=== PATIENT | male | born 1960 | race Caucasian/White ===

== ENCOUNTER 2021-06-10 14:04 | Observation (INO) | payer MEDICARE, OTHER ==
[2021-06-10] MEDS ORDERED: SODIUM CHLORIDE 0.9% 1,000 ML IV STA (15:17)
--- NOTE | 2021-06-10 15:38 | XR ---
EXAMINATION TYPE: XR chest 2V DATE OF EXAM: 06/10/2021 COMPARISON: NONE HISTORY: Syncope and weakness. TECHNIQUE: Frontal and lateral views of the chest are obtained. FINDINGS: There is reticular interstitial prominence in the periphery of both lungs. No pleural effu vanna or pneumothorax seen bilaterally. The cardiac silhouette size is within normal limits. The os seous structures are intact. IMPRESSION: Bilateral reticular peripheral interstitial changes. Suspect pulmonary fibrosis versus i nterstitial edema. Correlate clinically. Correlation with old outside x-ray would be beneficial.
[2021-06-10 15:57] LABS: Basophils % (A) 0 %; Eosinophils # (A) 0.1 k/uL (0-0.7); Eosinophils % (A) 2 %; HCT 40.6 % (39.0-53.0); HGB 13.4 gm/dL (13.0-17.5); Lymphocytes # (A) 0.5 k/uL (1.0-4.8); Lymphocytes % (A) 10 %; MCH 31.2 pg (25.0-35.0); MCV 94.6 fL (80.0-100.0); Monocytes # (A) 0.3 k/uL (0-1.0); Monocytes % (A) 5 %; Neutrophils # (A) 3.9 k/uL (1.3-7.7); Neutrophils % (A) 82 %; Platelet Count 149 k/uL (150-450); RBC 4.29 m/uL (4.30-5.90); RDW 13.6 % (11.5-15.5); WBC 4.8 k/uL (3.8-10.6)
[2021-06-10 16:06] LABS: ALT 25 U/L (4-49); AST 36 U/L (17-59); African American GFR (CKD) >90 (>60 ml/min/1.73 sqM); Albumin 3.6 g/dL (3.5-5.0); Alcohol <10 mg/dL; Alkaline Phosphatase 89 U/L (38-126); Anion Gap 6 mmol/L; Blood Urea Nitrogen 12 mg/dL (9-20); Calcium 8.6 mg/dL (8.4-10.2); Carbon Dioxide 29 mmol/L (22-30); Chloride 100 mmol/L (98-107); Glucose 126 mg/dL (74-99); Non-African American GFR(CKD) 89 (>60 ml/min/1.73 sqM); Potassium 3.9 mmol/L (3.5-5.1); Sodium 135 mmol/L (137-145); Total Bilirubin 0.4 mg/dL (0.2-1.3); Total Protein 6.5 g/dL (6.3-8.2)
[2021-06-10 16:08] LABS: Prothrombin Time 10.3 sec (9.0-12.0)
--- NOTE | 2021-06-10 16:26 | ED ---
General Adult HPI - General Source: EMS Mode of arrival: EMS Limitations: no limitations <Taurus Guerin - Last Filed: 06/10/21 16:38> <Lion Headley - Last Filed: 06/10/21 16:42> - General Chief complaint: Syncope Stated complaint: syncope Time Seen by Provider: 06/10/21 15:16 - History of Present Illness Initial comments: 60-year-old male presents to the emergency room for a chief complaint of syncope. Patient states he was at work today at [employer]. 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 Patient states he then passed out. Patient denies any chest pain or shortness of breath. Patient states he feels better at this time.Patient has no other complaints at this time including shortness of breath, chest pain, abdominal pain, nausea or vomiting, headache, or visual changes. (Taurus Guerin) - Related Data Allergies Allergy/AdvReac Type Severity Reaction Status Date / Time No Known Allergies Allergy Verified 06/10/21 14:38 Review of Systems ROS Other: All systems not noted in ROS Statement are negative. <Taurus Guerin - Last Filed: 06/10/21 16:38> ROS Other: All systems not noted in ROS Statement are negative. <Lion Headley - Last Filed: 06/10/21 16:42> ROS Statement: Those systems with pertinent positive or pertinent negative responses have been documented in the HPI. Past Medical History Past Medical History: No Reported History History of Any Multi-Drug Resistant Organisms: None Reported Past Surgical History: No Surgical Hx Reported Past Psychological History: Depression Smoking Status: Never smoker Past Alcohol Use History: None Reported Past Drug Use History: None Reported <Taurus Guerin - Last Filed: 06/10/21 16:38> General Exam Limitations: no limitations General appearance: alert, in no apparent distress Head exam: Present: atraumatic, normocephalic Eye exam: Present: normal appearance, PERRL, EOMI. Absent: scleral icterus, conjunctival injection ENT exam: Present: normal exam, mucous membranes moist Neck exam: Present: normal inspection, full ROM. Absent: tenderness Respiratory exam: Present: normal lung sounds bilaterally. Absent: respiratory distress, wheezes Cardiovascular Exam: Present: regular rate, normal rhythm, normal heart sounds GI/Abdominal exam: Present: soft, normal bowel sounds. Absent: distended, tenderness <Taurus Guerin - Last Filed: 06/10/21 16:38> Course <Lion Headley - Last Filed: 06/10/21 16:42> Vital Signs 06/10/21 06/10/21 14:10 16:29 Temperature 99.0 F Pulse Rate 67 18 L Respiratory 18 16 Rate Blood Pressure 149/83 134/81 O2 Sat by Pulse 100 100 Oximetry - Reevaluation(s) Reevaluation #1: 06/10/21 16:42 PA supervision: I did personally evaluate this case and did review the EKG as well as a history of physical. I do agree with the assessment and plan. Patient will be admitted with Dr. Rubi the patient evaluation and treatment. (Lion Headley) EKG Findings - EKG Comments: EKG Findings:: Sinus bradycardia, ventricular rate 59, OK interval 150, QTC 415 <Taurus Guerin - Last Filed: 06/10/21 16:38> Medical Decision Making - Lab Data Result diagrams: 06/10/21 15:44 06/10/21 15:44 <Taurus Guerin - Last Filed: 06/10/21 16:38> - Lab Data Result diagrams: 06/10/21 15:44 06/10/21 15:44 <Lion Headley - Last Filed: 06/10/21 16:42> - Medical Decision Making Vitals are stable. CBC and CMP are unremarkable. EKG shows a normal sinus rhythm. Troponin is negative. Chest x-ray shows bilateral reticular peripheral interstitial changes. Suspect pulmonary fibrosis versus interstitial edema. BNP will be added however patient does not appear fluid overloaded on physical exam. recommend admission for further workup of syncope of unknown cause. Case was discussed with Dr. Rubi who does accept the admission. (Taurus Guerin) - Lab Data Lab Results 06/10/21 06/10/21 06/10/21 Range/Units 15:44 15:44 15:44 WBC 4.8 (3.8-10.6) k/uL RBC 4.29 L (4.30-5.90) m/uL Hgb 13.4 (13.0-17.5) gm/dL Hct 40.6 (39.0-53.0) % MCV 94.6 (80.0-100.0) fL MCH 31.2 (25.0-35.0) pg MCHC 33.0 (31.0-37.0) g/dL RDW 13.6 (11.5-15.5) % Plt Count 149 L (150-450) k/uL MPV 8.0 Neutrophils % 82 % Lymphocytes % 10 % Monocytes % 5 % Eosinophils % 2 % Basophils % 0 % Neutrophils # 3.9 (1.3-7.7) k/uL Lymphocytes # 0.5 L (1.0-4.8) k/uL Monocytes # 0.3 (0-1.0) k/uL Eosinophils # 0.1 (0-0.7) k/uL Basophils # 0.0 (0-0.2) k/uL PT 10.3 (9.0-12.0) sec INR 1.0 (<1.2) APTT 26.0 (22.0-30.0) sec Sodium 135 L (137-145) mmol/L Potassium 3.9 (3.5-5.1) mmol/L Chloride 100 (98-107) mmol/L Carbon Dioxide 29 (22-30) mmol/L Anion Gap 6 mmol/L BUN 12 (9-20) mg/dL Creatinine 0.94 (0.66-1.25) mg/dL Est GFR (CKD-EPI)AfAm >90 (>60 ml/min/1.73 sqM) Est GFR (CKD-EPI)NonAf 89 (>60 ml/min/1.73 sqM) Glucose 126 H (74-99) mg/dL Calcium 8.6 (8.4-10.2) mg/dL Magnesium 2.0 (1.6-2.3) mg/dL Total Bilirubin 0.4 (0.2-1.3) mg/dL AST 36 (17-59) U/L ALT 25 (4-49) U/L Alkaline Phosphatase 89 (38-126) U/L Troponin I (0.000-0.034) ng/mL Total Protein 6.5 (6.3-8.2) g/dL Albumin 3.6 (3.5-5.0) g/dL Serum Alcohol <10 mg/dL 06/10/21 Range/Units 15:44 WBC (3.8-10.6) k/uL RBC (4.30-5.90) m/uL Hgb (13.0-17.5) gm/dL Hct (39.0-53.0) % MCV (80.0-100.0) fL MCH (25.0-35.0) pg MCHC (31.0-37.0) g/dL RDW (11.5-15.5) % Plt Count (150-450) k/uL MPV Neutrophils % % Lymphocytes % % Monocytes % % Eosinophils % % Basophils % % Neutrophils # (1.3-7.7) k/uL Lymphocytes # (1.0-4.8) k/uL Monocytes # (0-1.0) k/uL Eosinophils # (0-0.7) k/uL Basophils # (0-0.2) k/uL PT (9.0-12.0) sec INR (<1.2) APTT (22.0-30.0) sec Sodium (137-145) mmol/L Potassium (3.5-5.1) mmol/L Chloride (98-107) mmol/L Carbon Dioxide (22-30) mmol/L Anion Gap mmol/L BUN (9-20) mg/dL Creatinine (0.66-1.25) mg/dL Est GFR (CKD-EPI)AfAm (>60 ml/min/1.73 sqM) Est GFR (CKD-EPI)NonAf (>60 ml/min/1.73 sqM) Glucose (74-99) mg/dL Calcium (8.4-10.2) mg/dL Magnesium (1.6-2.3) mg/dL Total Bilirubin (0.2-1.3) mg/dL AST (17-59) U/L ALT (4-49) U/L Alkaline Phosphatase (38-126) U/L Troponin I <0.012 (0.000-0.034) ng/mL Total Protein (6.3-8.2) g/dL Albumin (3.5-5.0) g/dL Serum Alcohol mg/dL Disposition Is patient prescribed a controlled substance at d/c from ED?: No Time of Disposition: 16:33 <Taurus Guerin P - Last Filed: 06/10/21 16:38> <Lion Headley - Last Filed: 06/10/21 16:42> Clinical Impression: Syncope Disposition: ADMITTED IP TO THIS HOSP Referrals: Roberto Rubi MD [Primary Care Provider] - 1-2 days
[2021-06-10] MEDS ORDERED: ASPIRIN 81 MG PO STA (16:33)
[2021-06-10] MEDS ORDERED: NITROGLYCERIN SL TABS 0.4 MG TAB SUBLINGUAL PRN (16:33)
--- NOTE | 2021-06-11 09:24 | P.CRDCN ---
History of Present Illness History of present illness: This is a 60 year old male with no significant past medical history. 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 We have been consulted for syncope. 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 He states he had acute onset of feeling flushed, warm, and whole body "felt weak". Patient states he did lose consciousness, woke up in a chair at work with people around him. He denies any chest pain, shortness of breath, lightheadedness, dizziness, nausea, vomiting. Denies weakness on one side, headache, visual changes, incontinence. He states he has been having a cough for 3 days. Denies fever or chills. Patient found to be Covid-19 positive. He denies any illicit drug, tobacco or alcohol use. DIAGNOSTICS EKG reveals Sinus bradycadia, HR 59, no significant ST-T wave abnormalities. EKG this morning sinus bradycardia HR 43. Telemetry tracings indicate sinus bradycardia, heart rate in the 40s, no significant pauses noted Chest xray Bilateral reticular interstitial prominence the periphery of both lungs Laboratory reviewed, troponin negative 3, sodium 135, potassium 3.9, BUN 12, serum creatinine 0.9, magnesium 2.0, proBNP 77, covid-19 Positive Current home medications include mulitvitamin and fluvoxamine REVIEW OF SYSTEMS At the time of my exam: CONSTITUTIONAL: Denies fever or chills. CARDIOVASCULAR: Denies chest pain, shortness of breath, orthopnea, PND or palpitations. RESPIRATORY: Denies cough. GASTROINTESTINAL: Denies abdominal pain, diarrhea, constipation, nausea or vomiting. MUSCULOSKELETAL: Denies myalgias. NEUROLOGIC: Denies numbness, tingling, headache or weakness. ENDOCRINE: Denies fatigue, weight change, polydipsia or polyurina. GENITOURINARY: Denies burning, hematuria or urgency with micturation. HEMATOLOGIC: Denies history of anemia or bleeding. PHYSICAL EXAMINATION Blood pressure 126/70, heart rate 43, afebrile, saturations greater than 90% on room air CONSTITUTIONAL: No apparent distress. HEENT: Head is normocephalic. Pupils are equal, round. Sclerae anicteric. Mucous membranes of the mouth are moist. No JVD. No carotid bruit. CHEST EXAMINATION: Lungs are clear to auscultation. No chest wall tenderness is noted on palpation or with deep breathing. HEART EXAMINATION: Regular rate and rhythm. S1, S2 heard. No murmurs, gallops or rub. ABDOMEN: Soft, nontender. Positive bowel sounds. EXTREMITIES: 2+ peripheral pulses, no lower extremity edema and no calf tenderness. SKIN: warm, dry NEUROLOGIC EXAMINATION: Patient is awake, alert and oriented x3. ASSESSMENT Syncope, unclear etiology Covid-19 Infection Sinus bradycardia PLAN -An acute coronary event has been ruled out with no EKG evidence of ischemia and negative cardiac enzymes. -Obtain 2D echocardiogram and doppler study to assess cardiac structure and function. -D-Dimer elevated at 4.48, will check CTA chest to rule out pulmonary embolism. -Check TSH -Continue cardiac telemetry -Further recommendations based on clinical course Thank you kindly for this consultation. Nurse Practitioner note has been reviewed, I agree with a documented findings and plan of care. Patient was seen and examined. Past Medical History Past Medical History: No Reported History History of Any Multi-Drug Resistant Organisms: None Reported Past Surgical History: No Surgical Hx Reported Past Psychological History: Depression Smoking Status: Never smoker Past Alcohol Use History: None Reported Past Drug Use History: None Reported Medications and Allergies Home Medications Medication Instructions Recorded Confirmed Type Multivitamin [Multivitamins Adult 1 tab PO DAILY 06/10/21 06/10/21 History Gummies] fluvoxaMINE MALEATE 150 mg PO BID 06/10/21 06/10/21 History Allergies Allergy/AdvReac Type Severity Reaction Status Date / Time No Known Allergies Allergy Verified 06/10/21 17:52 Physical Exam Vitals: Vital Signs Temp Pulse Pulse Resp BP BP Pulse Ox 06/11/21 05:26 97.3 F L 43 L 14 126/70 97 06/10/21 20:53 97.6 F 59 L 16 103/59 99 06/10/21 18:12 98.0 F 60 16 136/78 97 06/10/21 16:29 58 L 16 134/81 100 06/10/21 14:10 99.0 F 67 18 149/83 100 Intake and Output 06/10/21 06/11/21 06/11/21 22:59 06:59 14:59 Other: # Voids 1 Weight 77.111 kg Results 06/10/21 15:44 06/10/21 15:44 Cardiac Enzymes 06/10/21 06/10/21 06/10/21 Range/Units 15:44 15:44 18:14 AST 36 (17-59) U/L Troponin I <0.012 <0.012 (0.000-0.034) ng/mL 06/10/21 Range/Units 21:47 AST (17-59) U/L Troponin I <0.012 (0.000-0.034) ng/mL Coagulation 06/10/21 Range/Units 15:44 PT 10.3 (9.0-12.0) sec APTT 26.0 (22.0-30.0) sec CBC 06/10/21 Range/Units 15:44 WBC 4.8 (3.8-10.6) k/uL RBC 4.29 L (4.30-5.90) m/uL Hgb 13.4 (13.0-17.5) gm/dL Hct 40.6 (39.0-53.0) % Plt Count 149 L (150-450) k/uL Comprehensive Metabolic Panel 06/10/21 Range/Units 15:44 Sodium 135 L (137-145) mmol/L Potassium 3.9 (3.5-5.1) mmol/L Chloride 100 (98-107) mmol/L Carbon Dioxide 29 (22-30) mmol/L BUN 12 (9-20) mg/dL Creatinine 0.94 (0.66-1.25) mg/dL Glucose 126 H (74-99) mg/dL Calcium 8.6 (8.4-10.2) mg/dL AST 36 (17-59) U/L ALT 25 (4-49) U/L Alkaline Phosphatase 89 (38-126) U/L Total Protein 6.5 (6.3-8.2) g/dL Albumin 3.6 (3.5-5.0) g/dL Current Medications Generic Name Dose Route Start Last Admin Trade Name Freq PRN Reason Stop Dose Admin Nitroglycerin 0.4 mg 06/10/21 16:33 Nitroglycerin Sl Tabs 0.4 Mg Tab SUBLINGUAL Q5M PRN Chest Pain Intake and Output 06/10/21 06/11/21 06/11/21 22:59 06:59 14:59 Other: # Voids 1 Weight 77.111 kg 06/10/21 15:44 06/10/21 15:44
[2021-06-11 09:25] LABS: Chol/HDL Ratio 3.39 Ratio
--- NOTE | 2021-06-11 10:17 | CT ---
EXAMINATION TYPE: CT angio chest DATE OF EXAM: 06/11/2021 COMPARISON: Chest x-ray from yesterday HISTORY: elevated d dimer CT DLP: 278.4 mGycm. Automated Exposure Control for Dose Reduction was Utilized. CONTRAST: CTA scan of the thorax is performed with IV Contrast, patient injected with 100 mL of Isovue 370, pul monary embolism protocol. MIP Images are created on CT scanner and reviewed. FINDINGS: LUNGS: Moderate peripheral reticulation bilaterally involving upper through lower lungs greatest mid zone level. Tiny right greater than left pleural effusions. No suspicious focal consolidations. No co ncerning masses. No pneumothorax seen bilaterally. MEDIASTINUM: There is satisfactory enhancement of the pulmonary artery and its branches, there is pul monary embolism in the right middle lobe branch axial image 77. Acute pulmonary embolism in the right lower lobe with segmental extension axial images 80 through 89. Acute pulmonary emboli in segmental branches left lower lobe axial images 91-94 subsegmental extension. There are no greater than 1 cm hi lar or mediastinal lymph nodes. Small to tiny pericardial effusion is seen. No significant right vent ricular dilatation. OTHER: Numerous dependent calcified gallstones in the gallbladder. Debris within stomach with air-fl uid level, suspected recent meal ingestion. Underlying scoliotic curvature. Partially exophytic 0.0 c m thin-walled cyst posteriorly upper pole of the right kidney with adjacent smaller cyst. IMPRESSION: 1. Bilateral lower lung pulmonary emboli without convincing CT evidence for right ventricular strain. 2. Moderate peripheral parenchymal fibrotic changes without acute pulmonary infiltrate.
[2021-06-11] MEDS ORDERED: APIXABAN 5 MG TAB PO SCH (10:45)
--- NOTE | 2021-06-11 10:45 | ECHOF ---
Referral Reason:syncope MEASUREMENTS -------- HEIGHT: 182.9 cm WEIGHT: 77.1 kg BP: 126/70 RVIDd: 3.0 cm (< 3.3) IVSd: 1.0 cm (0.6 - 1.1) LVIDd: 4.5 cm (3.9 - 5.3) LVPWd: 1.0 cm (0.6 - 1.1) IVSs: 1.4 cm LVIDs: 2.9 cm LVPWs: 1.5 cm LA Diam: 3.4 cm (2.7 - 3.8) LAESV Index (A-L): 22.45 ml/m Ao Diam: 2.8 cm (2.0 - 3.7) AV Cusp: 2.2 cm (1.5 - 2.6) MV EXCURSION: 14.382 mm (> 18.000) MV EF SLOPE: 97 mm/s (70 - 150) EPSS: 0.5 cm MV E Andres: 0.92 m/s MV DecT: 217 ms MV A Andres: 0.66 m/s MV E/A Ratio: 1.39 RAP: 5.00 mmHg RVSP: 26.84 mmHg FINDINGS -------- Sinus rhythm. Resting bradycardia (HR<60bpm). This was a technically good study. The left ventricular size is normal. Left ventricular wall thickness is normal. Overall left vent ricular systolic function is normal with, an EF between 60 - 65 %. The right ventricle is normal in size. The right atrium is normal in size. Interatrial and interventricular septum intact. The aortic valve is trileaflet, and appears structurally normal. No aortic stenosis or regurgitation. There is trace mitral regurgitation. Mild tricuspid regurgitation present. Right ventricular systolic pressure is normal at < 35 mmHg. Trace/mild (physiologic) pulmonic regurgitation. The aortic root size is normal. Normal inferior vena cava with normal inspiratory collapse consistent with estimated right atrial pre ssure of 5 mmHg. There is no pericardial effusion. CONCLUSIONS -------- 1. Resting bradycardia (HR<60bpm). 2. The left ventricular size is normal. 3. Left ventricular wall thickness is normal. 4. Overall left ventricular systolic function is normal with, an EF between 60 - 65 %. 5. The aortic valve is trileaflet, and appears structurally normal. No aortic stenosis or regurgitati on. 6. There is trace mitral regurgitation. 7. Mild tricuspid regurgitation present. 8. Trace/mild (physiologic) pulmonic regurgitation. 9. There is no pericardial effusion. CANVAS SHRINKER: Le Hines RDCS
[2021-06-11] MEDS ORDERED: MULTIVITAMINS, THERA 1 EACH TAB PO SCH (11:15)
--- NOTE | 2021-06-11 11:26 | US ---
EXAMINATION TYPE: US venous doppler duplex LE DATE OF EXAM: 06/11/2021 11:18 AM COMPARISON: NONE CLINICAL HISTORY: elevated d-dimer, pulmonary embolism, rule out DVT. Exam done portable on covid patient SIDE PERFORMED: Bilateral TECHNIQUE: The lower extremity deep venous system is examined utilizing real time linear array sonog jad with graded compression, doppler sonography and color-flow sonography. VESSELS IMAGED: Common Femoral Vein Deep Femoral Vein Greater Saphenous Vein * Femoral Vein Popliteal Vein Small Saphenous Vein * Proximal Calf Veins (* superficial vessels) Right Leg: Appears negative for DVT Left Leg: Positive for DVT popliteal vein IMPRESSION: 1. Deep venous thrombosis left popliteal vein.
[2021-06-11 12:56] VITALS: BMI 23.0
--- NOTE | 2021-06-11 13:03 | US ---
EXAMINATION TYPE: US carotid duplex BILAT DATE OF EXAM: 06/11/2021 COMPARISON: NONE CLINICAL HISTORY: Syncope. EXAM MEASUREMENTS: RIGHT: Peak Systolic Velocity (PSV) cm/sec ----- Right CCA: 122 ----- Right ICA: 125 ----- Right ECA: 240 ICA/CCA ratio: 1.02 RIGHT: End Diastole cm/sec ----- Right CCA: 21.4 ----- Right ICA: 26.0 ----- Right ECA: 19.1 LEFT: Peak Systolic Velocity (PSV) cm/sec ----- Left CCA: 107.0 ----- Left ICA: 141.0 ----- Left ECA: 194 ICA/CCA ratio: 1.31 LEFT: End Diastole cm/sec ----- Left CCA: 24.7 ----- Left ICA: 43.2 ----- Left ECA: 21.3 VERTEBRALS (direction of flow): Right Vertebral: Antegrade Left Vertebral: Antegrade Rhythm: Normal Mild atherosclerotic changes with velocity increases seen in bilateral ICA's. Some wall thickening si milar to the carotid bifurcations. IMPRESSION: 1. Moderate narrowing bilateral carotid bifurcations greater on the left the right. This is estimat ed between 50 and 69%. Correlate with the patient's symptoms. Criteria for Assigning % of Stenosis / Diameter reduction (Estimation based on the indirect measurements of the internal carotid artery velocities (ICA PSV). 1. Normal (no stenosis)=ICA PSV < 125 cm/s: ratio < 2.0: ICA EDV<40 cm/s. 2. Less than 50% stenosis=ICA PSV < 125 cm/s: ratio < 2.0: ICA EDV<40 cm/s. 3. 50 to 69% stenosis=ICA PSV of 125 to 230 cm/s: ration 2.0 ? 4.0: ICA EDV 40-100 cm/s. 4. Greater than 70% stenosis to near occlusion= ICA PSV > 230 cm/s: ratio > 4.0: ICA EDV > 100 cm/s. 5. Near occlusion= ICA PSV velocities may be low or undetectable: variable ratio and ICA EDV. 6. Total occlusion=unable to detect flow.
[2021-06-11 18:08] VITALS: BP 116/64; PULSE 52; RESP 18; TEMP 98
--- NOTE | 2021-06-11 19:38 | P.HPIM ---
History of Present Illness H&P Date: 06/11/21 Ji Resendiz is a 60-year-old male who presented to [facility] emergency room after having a syncopal episode. He was evaluated in the emergency room. He was evaluated in emergency room and admitted to telemetry floor for further evaluation echocardiogram and carotid Doppler were ordered, cardiology consultation was requested. Subsequence lead d-dimer was positive and significantly elevated at 4.[address] angiogram of the chest which revealed bilateral pulmonary embolism he was started on liquids 10 mg by mouth twice daily. Past Medical History Past Medical History: No Reported History History of Any Multi-Drug Resistant Organisms: None Reported Past Surgical History: No Surgical Hx Reported Past Psychological History: Depression Smoking Status: Never smoker Past Alcohol Use History: None Reported Past Drug Use History: None Reported Medications and Allergies Home Medications Medication Instructions Recorded Confirmed Type Multivitamin [Multivitamins Adult 1 tab PO DAILY 06/10/21 06/10/21 History Gummies] fluvoxaMINE MALEATE 150 mg PO BID 06/10/21 06/10/21 History Apixaban [Eliquis Starter Pack 5 - 10 mg PO DIRECTED 30 Days 06/11/21 Rx (for VTE)] #1 each Apixaban [Eliquis] 10 mg PO BID tab 06/11/21 Rx Allergies Allergy/AdvReac Type Severity Reaction Status Date / Time No Known Allergies Allergy Verified 06/10/21 17:52 Physical Exam Vitals: Vital Signs Temp Pulse Pulse Resp BP BP Pulse Ox 06/11/21 07:00 98.0 F 54 L 16 134/68 98 06/11/21 05:26 97.3 F L 43 L 14 126/70 97 06/10/21 20:53 97.6 F 59 L 16 103/59 99 06/10/21 18:12 98.0 F 60 16 136/78 97 06/10/21 16:29 58 L 16 134/81 100 06/10/21 14:10 99.0 F 67 18 149/83 100 Intake and Output 06/10/21 06/11/21 06/11/21 22:59 06:59 14:59 Intake Total 180 Balance 180 Intake: Oral 180 Other: # Voids 1 Weight 77.111 kg In general patient is alert and oriented x 3 in no distress HEENT head normocephalic and atraumatic Neck is supple no JVD no goiter no lymphadenopathy no carotid bruit Chest examination is clear to auscultation no crackles no wheezing Cardiac exam reveals regular heart sounds S1 and S2 no gallops no murmurs Abdomen is soft nontender no organomegaly with normal bowel sounds Extremity exam reveals no edema no cyanosis or clubbing Neurological examination reveals no gross focal deficits Results CBC & Chem 7: 06/10/21 15:44 06/10/21 15:44 Labs: Abnormal Lab Results - Last 24 Hours (Table) 06/10/21 06/10/21 06/10/21 Range/Units 15:44 15:44 16:07 RBC 4.29 L (4.30-5.90) m/uL Plt Count 149 L (150-450) k/uL Lymphocytes # 0.5 L (1.0-4.8) k/uL D-Dimer (<0.60) mg/L FEU Sodium 135 L (137-145) mmol/L Glucose 126 H (74-99) mg/dL Coronavirus (PCR) Detected A (Not Detectd) 06/11/21 Range/Units 05:04 RBC (4.30-5.90) m/uL Plt Count (150-450) k/uL Lymphocytes # (1.0-4.8) k/uL D-Dimer 4.48 H (<0.60) mg/L FEU Sodium (137-145) mmol/L Glucose (74-99) mg/dL Coronavirus (PCR) (Not Detectd) Thrombosis Risk Factor Assmnt - Choose All That Apply Any of the Below Risk Factors Present?: Yes Each Factor Represents 1 point: Age 41-60 years Thrombosis Risk Factor Assessment Total Risk Factor Score: 1 Thrombosis Risk Factor Assessment Level: Low Risk Assessment and Plan Plan: Syncopal episode on presentation Elevated d-dimer with evidence of bilateral pulmonary embolism on CT angiogram of the chest Positive PCR testing for COVID-19 infection No evidence of acute respiratory failure oxygen saturation is 99% on room air At this time patient is admitted to telemetry floor Cardiology consultation was requested Home medications reviewed and reordered Patient was started on oral Eliquis Will follow closely
--- NOTE | 2021-06-11 19:42 | P.DS ---
Providers Date of admission: 06/10/21 16:31 Expected date of discharge: 06/11/21 Attending physician: Roberto Rubi Consults: 06/10/21 16:33 Consult Physician Routine Consulting Provider: [facility] Consult Reason/Comments: syncope Do you want consulting provider notified?: Yes Primary care physician: Roberto Greyson [facility] Course: Diagnosis on discharge: Syncopal episode on presentation Elevated d-dimer with evidence of bilateral pulmonary embolism on CT angiogram of the chest Positive PCR testing for COVID-19 infection No evidence of acute respiratory failure oxygen saturation is 99% on room air Hospital course: Ji Resendiz is a 60-year-old male who presented to [facility] emergency room after having a syncopal episode. He was evaluated in the emergency room. He was evaluated in emergency room and admitted to telemetry floor for further evaluation echocardiogram and carotid Doppler were ordered, cardiology consultation was requested. Subsequence lead d-dimer was positive and significantly elevated at 4.[address] angiogram of the chest which revealed bilateral pulmonary embolism he was started on liquids 10 mg by mouth twice daily. On 06/11/2021 patient was reevaluated on the telemetry floor he was alert and oriented without any symptoms no episodes of dizziness no shortness of breath no cough, he was cleared by cardiology for discharge, patient was very eager to go home, he was given a prescription for Eliquis 10 mg twice daily for 7 days then 5 mg twice daily he will be followed in our office on Thursday he was instructed to return to emergency room if having any symptoms of chest pain shortness of breath or dizziness or loss of consciousness Plan - Discharge Summary Discharge Rx Participant: Yes New Discharge Prescriptions: New Apixaban [Eliquis Starter Pack (for VTE)] 5 - 10 mg PO DIRECTED 30 Days #1 each Apixaban [Eliquis] 10 mg PO BID tab Continue fluvoxaMINE MALEATE 150 mg PO BID Multivitamin [Multivitamins Adult Gummies] 1 tab PO DAILY Discharge Medication List Multivitamin [Multivitamins Adult Gummies] 1 tab PO DAILY 06/10/21 [History] fluvoxaMINE MALEATE 150 mg PO BID 06/10/21 [History] Apixaban [Eliquis Starter Pack (for VTE)] 5 - 10 mg PO DIRECTED 30 Days #1 each 06/11/21 [Rx] Apixaban [Eliquis] 10 mg PO BID tab 06/11/21 [Rx] Follow up Appointment(s)/Referral(s): [facility] [NON-STAFF] - 1-2 Days Roberto Rubi MD [Primary Care Provider] - 1-2 days Patient Instructions/Handouts: Syncope (DC) Discharge Disposition: HOME SELF-CARE
== END 2021-06-11 17:20 | disposition home or self-care (01) ==
LOC: EC 14:04 → EEVIPCON 14:04 → 6NMEDSUR 16:31
PROVIDERS: ADMIT Internal Medicine; ATTEND Internal Medicine
DX: R55 Syncope and collapse (principal); U07.1 COVID-19; I26.99 Other pulmonary embolism without acute cor pulmonale; R00.1 Bradycardia, unspecified; R53.1 Weakness; F32.A Depression, unspecified; I36.1 Nonrheumatic tricuspid (valve) insufficiency
CPT/HCPCS: 99285; 36415; 93005; 93306; 85379; 83880; 80061; 80053; 84443; 83735; 84484; 85025; 85610; 85730; 87635; 71046; 93880; 93970; 71275; G0378 ×2; G0480; Q9967; 80320